=== PATIENT | male | born 1930 | race Caucasian/White ===

== ENCOUNTER 2017-03-21 01:43 | Inpatient (IN) ==
[2017-03-21] MEDS ORDERED: HALOPERIDOL 5 MG/ML AMP IV STA (02:10)
[2017-03-21] MEDS ORDERED: HALOPERIDOL 5 MG/ML AMP ONE (02:13)
[2017-03-21] MEDS ORDERED: ONDANSETRON 4 MG/2 ML VIAL IV STA (02:18)
[2017-03-21] MEDS ORDERED: MORPHINE 2 MG/1 ML SYRINGE IV STA (02:18)
[2017-03-21] MEDS ORDERED: ONDANSETRON 4 MG/2 ML VIAL ONE ×2 (02:22→11:45)
[2017-03-21] MEDS ORDERED: MORPHINE 2 MG/1 ML SYRINGE ONE (02:22)
--- NOTE | 2017-03-21 02:48 | Emergency Department Note ---
ILadonna Emily, am scribing for, and in the presence of, Ha James MD 02: 44. Jacob Justice Charles R, MD, personally performed the services described in this documentation, ascribed by Miracle Dougherty in my presence, and it is both accurate and complete . Arrival - Arrival Chief Complaint: Fall ED Nursing Triage Note: Pt arrives via ems from home with complaints of right hip pain after falling while getting something to eat in kitchen. Denies hitting head, neck pain, or back pain. -LOC. Pt noted to have outward rotation to right foot and shortening. + pulse noted. + motor/sensory function noted. Pt has history of dementia is hard of hearing. Mode of Arrival: Stretcher Limitations: No Limitations Source: Significant other (spouse) Time Seen by Provider: 03/21/17 01:59 - History of Present Illness HPI Narrative: Pt is a 86 y/o male who was brought to ED from home by EMS for further evaluation of right hip and leg pain s/p of fall this morning the kitchen. Spouse notes pt having dementia. Spouse notes he can't walk and will deny pain due to wanting to go back home, but denies LOC. Pt called for spouse when fell. Pt's team of providers are Dr. Best, Abdirahman, and Jose. PMHx of CABG in 98; HTN, pacemaker. Onset (ago): hour(s) Consistency: constant Severity: moderate Severity scale (1-10): 6 Allergies/Adverse Reactions: Allergies Allergy/AdvReac Type Severity Reaction Status Date / Time No Known Allergies Allergy Verified 03/21/17 01:52 Home Medications: Home Medications Medication Instructions Recorded Confirmed Type Aspirin 81 mg PO DAILY 03/21/17 03/21/17 History Donepezil HCl [Aricept] 23 mg PO BEDTIME 03/21/17 03/21/17 History Memantine HCl [Namenda] 10 mg PO BID 03/21/17 03/21/17 History Metoprolol Succinate Xl [Toprol Xl] 100 mg PO DAILY 03/21/17 03/21/17 History Pravastatin [Pravachol] 80 mg PO DAILY 03/21/17 03/21/17 History Tamsulosin HCl 0.4 mg PO DAILY 03/21/17 03/21/17 History levoFLOXacin [Levofloxacin] 500 mg PO DAILY 03/21/17 03/21/17 History Review of System - Review of System 12 point system: reviewed and no additional remarkable complaints except as stated - Review of System Constitutional: Absent: chills, fever Respiratory: Absent: respiratory distress Cardiovascular: Absent: chest pain, syncope Gastrointestinal: Absent: abdominal pain Musculoskeletal: Present: leg pain (right leg and hip pain) Skin: Absent: rash Medical,Surgical,& Family Hx - Medical History Cardio: History of: Cardiac Dysrhythmia, Hypertension, Pacemaker Neurology: History of: Dementia Genitourinary: History of: Prostate Problems - Social History Smoking Status: Never smoker Frequency of Alcohol Use: None Type of Drug Use: None Exam Vital Signs: Vital Signs Temperature 98.3 F 03/21/17 01:43 Pulse Rate 60 03/21/17 01:43 Respiratory Rate 20 03/21/17 01:43 Blood Pressure 143/73 03/21/17 01:43 O2 Sat by Pulse Oximetry 96 03/21/17 01:43 - General General appearance: alert, in no apparent distress - Head Head exam: Present: atraumatic, normocephalic - Eye Eye exam: Present: PERRL, EOMI - ENT ENT exam: Present: mucous membranes moist. Absent: mucous membranes dry - Neck Neck exam: Present: full ROM - Chest Chest inspection: Present: symmetric chest wall rise - Respiratory Respiratory exam: Present: normal lung sounds bilaterally. Absent: respiratory distress - Cardiovascular Cardiovascular exam: Present: murmur (4 out of 6) - Extremities Exam Extremities exam: Present: tenderness (RLE is externally rotated and shortened) , pedal edema (+2 in bilateral lower extremities) - Neurological Exam Neurological exam: Present: alert, oriented X3, CN II-XII intact - Skin Skin exam: Present: warm, dry Course - Consultations Consultation #1: will accept the patient Time: 03:57 Consultation #2: Hospitalist will admit patient Time: 04:01 Results - Labs CBC & BMP: 03/21/17 02:38 03/21/17 02:38 Lab Results: I have reviewed the patients labs Labs: Laboratory Tests 03/21/17 03/21/17 02:38 02:38 WBC 10.7 RBC 3.53 L Hgb 10.8 L Hct 31.7 L Plt Count 167 Neut % (Auto) 76.0 H Lymph % (Auto) 12.3 L Neut # (Auto) 8.1 H Lymph # (Auto) 1.3 L Dickens # (Auto) 1.0 H Sodium 139 Potassium 4.1 Chloride 106 Carbon Dioxide 27 BUN 33 H Creatinine 2.40 H BUN/Creatinine Ratio 13.00 Glucose 107 H Albumin 3.1 L Albumin/Globulin Ratio 0.9 L Laboratory Tests 03/21/17 02:38 Blood Type B POSITIVE Antibody Screen Negative - EKG EKG results: interpreted by ERMD (electronic atrial pacemaker; RBBB; marked right axis deviation), sinus rhythm (75) Disposition Clinical Impression: Mechanical fall, Closed right hip fracture, Dementia, Renal insufficiency Case discussed with: patient, patient's family Disposition: Still a Patient Condition: Stable Time of Disposition: 03:58
[2017-03-21 02:49] LABS: Basophils % 0.3 % (0.0-0.8); Eosinophils # 0.2 10*3/uL (0.0-0.87); Eosinophils % 1.6 % (0.00-10.9); Hematocrit 31.7 VOL% (42.0-52.0); Hemoglobin 10.8 GM/DL (14.0-18.0); Immature Granulocytes % 0.6 %; Immature Granulocytes Absolute 0.06 #; Lymphocytes # 1.3 10*3/uL (1.4-4.0); Lymphocytes % 12.3 % (21.2-54.2); Mean Corpuscular HGB Conc 34.1 GM/DL (32-36); Mean Corpuscular Hemoglobin 31 PG (27-34); Mean Corpuscular Volume 89.8 FL (87-102); Mean Platelet Volume 10.5 FL (9.6-12.0); Monocytes % 9.2 % (1.7-12.7); Neutrophils # 8.1 10*3/uL (1.4-7.4); Platelet Count 167 T/CUMM (130-400); Red Blood Count 3.53 MC/CUMM (3.8-5.5); White Blood Count 10.7 T/CUMM (4-12)
[2017-03-21 03:00] LABS: INR 1.2; PT Patient Result 12.3 SECS
[2017-03-21 03:10] LABS: Albumin 3.1 G/DL (3.4-5.0); Bilirubin,Total 0.5 MG/DL (0.2-1.0); Calcium 8.5 MG/DL (8.5-10.1); Osmolality,Calculated 283.5 MOS/KG (273-304); Potassium 4.1 MMOL/L (3.5-5.1); Total Protein 6.4 G/DL (6.4-8.3)
[2017-03-21] MEDS ORDERED: SODIUM CHLORIDE 0.9% 500 ML IV STA (03:14)
--- NOTE | 2017-03-21 03:22 | EKG Report ---
Stationary ECG Study [facility] ER Test Date: 03/21/2017 3:22:07 AM Pat Name: YANG COPPOLA Department: Room: Gender: M Poker Machine Attendant: : [id number] Requested by: Ha Velez Order Number: [id number] Reading MD: JACLYN MONTELONGO Intervals Keo Rate: 75 P: 140 [place]: 191 QRS: 104 QRSD: 149 T: 22 QT: 440 QTc: 469 Interpretive Statements ELECTRONIC ATRIAL PACEMAKER RIGHT AXIS DEVIATION RIGHT BUNDLE BRANCH BLOCK Electronically Signed On 03-21-17 08:03:49 CDT by JACLYN MONTELONGO [email or web address]
[2017-03-21] MEDS ORDERED: ONDANSETRON 4 MG/2 ML VIAL IV PRN (05:08)
[2017-03-21] MEDS ORDERED: ACETAMINOPHEN 325 MG TABLET PO PRN (05:08)
[2017-03-21] MEDS ORDERED: MORPHINE 2 MG/1 ML SYRINGE IV PRN (05:08)
[2017-03-21 05:28] LABS: Apearance,Urine Slightly Hazy (Clear); Bilirubin,Urine Negative (Negative); Blood, Urine Large mg/dL (Negative); Glucose,Urine (UA) Negative (Negative); Hyaline Casts,Urine 1 /LPF (0-3); Ketones,Urine 5 mg/dL (Negative); Mucus,Urine Occasional /LPF (Occasional); Nitrite,Urine Negative (Negative); Protein,Urine 100 MG/DL; RBC,Urine 40 /HPF (0-4); Squamous Epithelial Cell,Urine Occasional /HPF (0-10); Urine Color Yellow (Yellow); Urine Specific Gravity 1.025 (1.001-1.035); Urine Urobilinogen < 2.0 EU/DL (0.2-1.0); WBC,Urine 3 /HPF (0-6)
[2017-03-21] MEDS: SODIUM CHLORIDE 0.9% 1,000 ML IV SCH ×3 (05:30→21:29)
--- NOTE | 2017-03-21 05:40 | Hospitalist History & Physical ---
Assessment and Plan - Time spent with patient Time spent with patient: Greater than 30 minutes (1) Closed right hip fracture Status: Acute Assessment and plan: Admit to hospitalist services. Orthopedic consult. Consult [facility] for surgical clearance. Pain control. Bed rest and fall precautions. Current Visit: Yes (2) Chronic kidney disease Status: Acute Assessment and plan: Creatinine in ED was 2.4. Only one previous value of 1.4 in 2015. Likely CKD with some acute component. Has a Hx of Prostate CA and is currently being treated for UTI. Hematuria noted in catheter bag, however states that he has not had any hematuria prior to catheter placement. Continue home dose of Levaquin; patient to use his on Rx. Hydrate with NS at 100 ml/hr. Repeat CMP in am. Current Visit: Yes (3) Hypertension Status: Chronic Assessment and plan: Continue home medications. Monitor. Current Visit: Yes (4) Dementia Status: Chronic Assessment and plan: Continue home medications. Current Visit: Yes (5) DVT prophylaxis Status: Acute Assessment and plan: Surgical patient. Use SCDs for now. Current Visit: Yes History of Present Illness Chief complaint: Right hip fracture; Fall History of present illness: Mr. Wood is a 86 year old male with a past medical history significant for HTN, CABG, Cardiac dysrhythmia with pacemaker placement, Dementia, and Prostate CA who was brought to the ED today by EMS after falling in his kitchen. His reports that he was in the kitchen getting something to eat when he fell. XR of right hip showed "acute mildly displaced comminuted right hip intertrochanteric fracture." His creatinine was 2.4 today. Hospitalist services were consulted and the patient will be admitted for further evaluation and treatment. Home medications were reviewed and reconciled. This patient is a full code. Home Medications Medication Instructions Recorded Confirmed Type Aspirin 81 mg PO DAILY 03/21/17 03/21/17 History Donepezil HCl [Aricept] 23 mg PO BEDTIME 03/21/17 03/21/17 History Memantine HCl [Namenda] 10 mg PO BID 03/21/17 03/21/17 History Metoprolol Succinate Xl [Toprol Xl] 100 mg PO DAILY 03/21/17 03/21/17 History Pravastatin [Pravachol] 80 mg PO DAILY 03/21/17 03/21/17 History Tamsulosin HCl 0.4 mg PO DAILY 03/21/17 03/21/17 History levoFLOXacin [Levofloxacin] 500 mg PO DAILY 03/21/17 03/21/17 History Allergies Allergy/AdvReac Type Severity Reaction Status Date / Time No Known Allergies Allergy Verified 03/21/17 01:52 Medical,Surgical,& Family Hx - Medical History Cardio: History of: Cardiac Dysrhythmia, Hypertension, Pacemaker Neurology: History of: Dementia HEENT: History of: Ear Problem (Hard of hearing) Genitourinary: History of: Prostate Problems (Prostate CA) - Surgical History Cardiac Surgeries: Sugical HX of: Cardiac Surgery (CABG x 3 grafts; pacemaker placement) HEENT Surgeries: Surgical HX of: Eye Surgery (cataract) Abdominal Surgeries: Surgical HX of: Appendectomy Reproductive Surgeries: Surgical HX of;: Prostate Surgery (cryo) - Family History Family History: Reports;: Family Heart Disease, Family Stroke - Social History Smoking Status: Former smoker Have you smoked in the last 12 months: No (Quit over 50 years ago) Frequency of Alcohol Use: None Type of Drug Use: None Marital Status: Lives With:: Spouse Functional capacity: independent ambulation 12 point system: reviewed and no additional remarkable complaints except as stated - Constitutional Constitutional: Present: frequent falls (Two falls on Tuesday; one fall today. ) . Absent: chills, fever(s), lethargy, malaise, weakness - EENT Eyes: Absent: blurry vision, diplopia, loss of vision Ears: Present: decreased hearing Nose, mouth and throat: Absent: headache(s), nasal congestion, sore throat - Cardiovascular Cardiovascular: Present: edema. Absent: chest pain at rest, diaphoresis, dyspnea, orthopnea, palpitations - Respiratory Respiratory: Absent: cough, dyspnea, wheezing - Gastrointestinal Gastrointestinal: Absent: abdominal pain, diarrhea, nausea, vomiting - Genitourinary Genitourinary: Absent: dysuria, flank pain, urinary frequency - Musculoskeletal Musculoskeletal: Absent: arthralgias, back pain, joint swelling, muscle weakness , myalgias - Neurological Neurological: Present: confusion. Absent: dizziness, numbness, paresthesias, syncope - Psychiatric Psychiatric: Absent: anxiety, depression - Endocrine Endocrine: Absent: cold intolerance, polydipsia, polyphagia - Hematologic/Lymphatic Hematologic/Lymphatic: Absent: easy bleeding, easy bruising Exam - Constitutional Vitals: Period Temp Pulse Resp BP Sys/Suarez Pulse Ox Last 24 Hr 98.3 F-98.3 F 60-68 19-20 143-143/73-73 96-98 Exam: Constitutional System: Afebrile. Awake, alert. Confused. No distress. No tremulousness. Head: Normocephalic, atraumatic. Ears, Nose and Throat System: Hard of hearing. No pain or tenderness. No epistaxis or discharge Eyes System: Pupils equal, round, and reactive. Extraocular muscles intact. Neck: Supple, without adenopathy, No jugular venous distention. No thyromegaly, neck mass, or prior surgery apparent. Respiratory System: Chest clear to auscultation. Cardiovascular System: Heart with regular rate and rhythm. Systolic murmur present. GI System: Abdomen soft, nontender. Normo active bowel sounds present. : Hematuria noted in catheter bag. Musculoskeletal System: BLE edema noted; right worse than left. Lateral deviation of right leg. Full distal pulses. Normal capillary refill. Neurological System: Hard of hearing. No aphasia Psychiatric System: Confused. Results - Labs CBC & BMP: 03/21/17 02:38 03/21/17 02:38 Lab Results: I have reviewed the past 24 hour labs - Diagnostic Findings Procedure: CT: report reviewed by me (Right hip) Quality Measures - VTE Contraindication to Pharmacological VTE Prophylaxis: High Risk of Bleeding
--- NOTE | 2017-03-21 07:10 | CT Report ---
CT hip RT wo con Indication: Fall, right hip pain Comparison: None Technique: Multiple axial tomographic images of the right hip were obtained without the use of intravenous contrast. Coronal and sagittal reformatted images provided. Findings: Acute, mildly displaced, comminuted right hip intertrochanteric fracture. No hip with dislocation demonstrated. There is moderate degenerative change of the right hip joint with subchondral cystic change within the acetabulum greater than the humeral head. Atherosclerotic calcifications demonstrated. IMPRESSION: As above. Preliminary report was issued by [facility]. The CT exam was performed using one or more of the following dose reduction techniques: Automated exposure control, adjustment of the mA and/or kV according to patient size, or use of iterative reconstruction technique. PROCEDURE INTERPRETED AT [facility] DEPARTMENT OF RADIOLOGY Final Report Signed by: Dr Bakari Walker
--- NOTE | 2017-03-21 07:36 | XRay Report ---
Exam: XR chest 1V portable Date: 03/21/2017 2:19 AM Indication: Shortness of breath Comparison: 07/22/2014 Technical: AP Findings: Cardiomegaly with a right-sided cardiac pacing device with atrial ventricular leads and previous sternotomy wires. ASVD is present. External cardiac leads are present. Some haziness in the left base present. Faint area of nodularity in the left base is no longer demonstrated Impression: 1. Cardiomegaly and previous sternotomy stepsister cardiac pacing device 2. Residual pleural thickening in the left base and slight haziness however no obvious nodularity present.. PROCEDURE INTERPRETED AT [facility] DEPARTMENT OF RADIOLOGY Final Report Signed by: Dr. Kong Oneal
--- NOTE | 2017-03-21 07:39 | XRay Report ---
Exam: XR hip 2v w pelvis RT Date: 03/21/2017 2:18 AM Indication: Pain right hip AP pelvis and AP frog-leg views the right hip Comparison: None Findings: Examination reveals an intertrochanteric fracture of the right femoral neck suspected. The femoral head is seated within acetabular region. The left femoral head and neck regions are intact. The pubic rami are unremarkable. Vascular calcifications of the aorta iliac vessels. SI joints intact. Phleboliths are present. Nonspecific GI pattern is noted Impression: 1. Intratrochanteric fracture right femoral neck nondisplaced PROCEDURE INTERPRETED AT [facility] DEPARTMENT OF RADIOLOGY Final Report Signed by: Dr. Kong Oneal
--- NOTE | 2017-03-21 07:40 | XRay Report ---
Exam: XR femur RT Date: 03/21/2017 2:19 AM Indication: Leg pain status post fall Comparison: None Technical: AP lateral views 4 images Findings: The exam reveals intertrochanteric fracture of the right femoral neck demonstrated with the pelvis and right hip images. The shaft and distal femur are intact. Vascular calcification superficial femoral popliteal artery. The proximal tibia and fibular intact patella is unremarkable. Impression: 1. Vascular calcinosis 2. Intratrochanteric fracture right femoral neck best delineated on the AP pelvis and AP frog-leg views the right hip PROCEDURE INTERPRETED AT [facility] DEPARTMENT OF RADIOLOGY Final Report Signed by: Dr. Kong Oneal
--- NOTE | 2017-03-21 08:53 | Orthopedic Consult Note ---
History of Present Illness Chief complaint: Right hip fracture History of present illness: Mr. Wood is a 86 year old male fell yesterday evening injuring his right hip family reports that he is an ambulator is recently started using a walker but is experiencing increasing difficulty secondary to dementia. Upon falling last night he was unable to bear weight about the right lower extremity brought to [facility] emergency room radiographs confirm an intertrochanteric fracture to the right hip I been asked to evaluate. Examination reveals external rotation shortening of the right limb he will actively flex and extend the foot and ankle on the right he has no pain about the left lower extremity or either upper extremity Radiographs confirm intertrochanteric fracture of the right hip Impression: Intertrochanteric fracture right hip Plan: Discussed with the patient and family present to diagnose treatment recommendation including the need for operative stabilization of his right hip fracture this should be a stable injury which should be able to advance with his weightbearing quickly. All questions were answered able to understand and agreed to proceed Home Medications Medication Instructions Recorded Confirmed Type Aspirin 81 mg PO DAILY 03/21/17 03/21/17 History Donepezil HCl [Aricept] 23 mg PO BEDTIME 03/21/17 03/21/17 History Memantine HCl [Namenda] 10 mg PO BID 03/21/17 03/21/17 History Metoprolol Succinate Xl [Toprol Xl] 100 mg PO DAILY 03/21/17 03/21/17 History Pravastatin [Pravachol] 80 mg PO DAILY 03/21/17 03/21/17 History Tamsulosin HCl 0.4 mg PO DAILY 03/21/17 03/21/17 History levoFLOXacin [Levofloxacin] 500 mg PO DAILY 03/21/17 03/21/17 History Allergies Allergy/AdvReac Type Severity Reaction Status Date / Time No Known Allergies Allergy Verified 03/21/17 01:52 Medical,Surgical,& Family Hx - Medical History Cardio: History of: Cardiac Dysrhythmia, Hypertension, Pacemaker Neurology: History of: Dementia HEENT: History of: Ear Problem (Hard of hearing) Genitourinary: History of: Prostate Problems (Prostate CA) - Surgical History Cardiac Surgeries: Sugical HX of: Cardiac Surgery (CABG x 3 grafts; pacemaker placement) HEENT Surgeries: Surgical HX of: Eye Surgery (cataract) Abdominal Surgeries: Surgical HX of: Appendectomy Reproductive Surgeries: Surgical HX of;: Prostate Surgery (cryo) - Family History Family History: Reports;: Family Heart Disease, Family Stroke - Social History Smoking Status: Former smoker Frequency of Alcohol Use: None Type of Drug Use: None Exam - Constitutional Vitals: Period Temp Pulse Resp BP Sys/Suarez Pulse Ox Last 24 Hr 98.3 F-98.3 F 60-93 18-20 143-185/53-85 94-99 Results - Labs CBC & BMP: 03/21/17 02:38 03/21/17 02:38
[2017-03-21] MEDS: MEMANTINE 5 MG TABLET PO SCH ×2 (09:00→21:24)
[2017-03-21] MEDS: TAMSULOSIN 0.4 MG CAPSULE PO SCH (09:00)
[2017-03-21] MEDS ORDERED: LEVOFLOXACIN 500 MG PO SCH (09:00)
--- NOTE | 2017-03-21 09:23 | Cardiology Consult Note ---
Assessment and Plan - Time spent with patient Time spent with patient: Greater than 30 minutes (1) Preoperative cardiovascular examination Status: Acute Assessment and plan: Patient remains at moderate risk for perioperative complications with upcoming surgery. Given the severity of the right hip fracture, these risks are not prohibitive. Recommend aspirin as soon as possible after procedure. Recommend beta-blockade during the procedure as well. Will further discuss with Dr. Montelongo and await additional recommendations. Current Visit: Yes (2) Dyslipidemia Status: Chronic Assessment and plan: Patient's home medication includes pravastatin. Will restart pravastatin 80 mg orally each evening starting this evening. Fasting lipid profile tomorrow morning. Current Visit: Yes (3) Risk for falls Status: Chronic Assessment and plan: Fall prevention protocol in place Current Visit: Yes (4) CAD (coronary artery disease) Status: Chronic Assessment and plan: Known CAD. No complaints of angina per patient's . He is status post CABG 3. I have no records of recent invasive workup or CABG, no echocardiogram recently. Should the patient require echo can do so while he is hospitalized versus outpatient. Will discuss with Dr. Montelongo and will order as needed . Current Visit: Yes (5) Closed right hip fracture Status: Acute Assessment and plan: Patient is n.p.o. and scheduled for right hip surgery around noon today. Current Visit: Yes (6) Dementia Status: Chronic Assessment and plan: Patient's has taken care of Mr. Wood at home for approximately 6 years. She has done a beautiful job. She did acknowledge that she feels as if this may be coming to an end. I will make sure that case management is involved as they may have options to offer at discharge such as swing bed versus long-term placement. Current Visit: Yes (7) Chronic kidney disease Status: Chronic Assessment and plan: Patient does have chronic kidney disease. According to records, it appears to be more severe during this admission then it has been noted to be in the past. Avoiding JAMIE inhibitors for fear of worsening renal insufficiency. Current Visit: Yes Qualifiers: Chronic kidney disease stage: stage 3 (moderate) Qualified Code(s): N18.3 - Chronic kidney disease, stage 3 (moderate) (8) Hypertension Status: Chronic Assessment and plan: Will adjust medications accordingly during hospital stay. At this point, systolic blood pressures averaging 160s-180s however, patient is anxious per patient's . Also, he may be in some pain from the right hip. Will continue to follow this closely and adjust his meds as we need to. 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 Mr. Wood, 86WM, with risk factors significant for: Advanced age, known CAD ( S/P CABG x 3), hypertension, dyslipidemia, sedentary lifestyle. S/P PPM, advanced dementia. Admitted March 21, 2017 after recent fall causing right hip fracture. Patient is scheduled for operative stabilization of the right hip fracture this afternoon by Dr. De La Garza. Cardiology has been consulted for preoperative risk evaluation. Ms. Wood reports patient does not complain of chest pain, heaviness, tightness or shortness of breath. No complaints of palpitations or heart racing. Patient has been falling a lot lately (fell 3 times over the weekend) due to generalized weakness. He was recently diagnosed with a urinary tract infection and is being treated for such. EKG reveals paced rhythm, right bundle branch block. Blood pressure is elevated but he has not received his metoprolol this morning. Will further follow his vital signs during hospital stay. Hopefully, elevation is related to not receiving meds yet as well as his right hip pain. Postoperatively, patient may benefit from echocardiogram. I will further discuss with Dr. Montelongo and await additional recommendations. IMPRESSION/PLAN: 1. PREOPERATIVE RISK EVALUATION - await Dr. Montelongo's recommendations. A recent echo or stress test available. 2. KNOWN CAD S/P CABG X 3 - recommend aspirin daily when okay with orthopedics. 3. HYPERTENSION - continue with beta-sheryl. Adjust medications accordingly during hospital stay 4. DYSLIPIDEMIA - statin drug will be reincorporated into his medication regimen. According to records, he usually takes Pravastatin 80 mg orally each evening. 5. ADVANCED DEMENTIA - High falls risk. Continue his home medications for dementia. 6. UTI - Treated with Levofloxin. CC: Awilda Dickens MD - Home Medications and Allergies Home Medications: Home Medications Medication Instructions Recorded Confirmed Type Aspirin 81 mg PO DAILY 03/21/17 03/21/17 History Donepezil HCl [Aricept] 23 mg PO BEDTIME 03/21/17 03/21/17 History Memantine HCl [Namenda] 10 mg PO BID 03/21/17 03/21/17 History Metoprolol Succinate Xl [Toprol Xl] 100 mg PO DAILY 03/21/17 03/21/17 History Pravastatin [Pravachol] 80 mg PO DAILY 03/21/17 03/21/17 History Tamsulosin HCl 0.4 mg PO DAILY 03/21/17 03/21/17 History levoFLOXacin [Levofloxacin] 500 mg PO DAILY 03/21/17 03/21/17 History Allergies/Adverse Reactions: Allergies Allergy/AdvReac Type Severity Reaction Status Date / Time No Known Allergies Allergy Verified 03/21/17 01:52 ROS unobtainable: due to dementia Medical,Surgical,& Family Hx - Medical History Cardio: History of: Cardiac Dysrhythmia, CAD, Hypertension, Pacemaker No history of: [place] Neurology: History of: Dementia HEENT: History of: Ear Problem (Hard of hearing) Genitourinary: History of: Prostate Problems (Prostate CA) - Surgical History Cardiac Surgeries: Sugical HX of: Cardiac Surgery (CABG x 3 grafts; pacemaker placement) HEENT Surgeries: Surgical HX of: Eye Surgery (cataract) Abdominal Surgeries: Surgical HX of: Appendectomy Reproductive Surgeries: Surgical HX of;: Prostate Surgery (cryo) - Family History Family History: Reports;: Family Heart Disease, Family Stroke - Social History Smoking Status: Former smoker Have you smoked in the last 12 months: No Frequency of Alcohol Use: None Type of Drug Use: None Marital Status: (61 years) Lives With:: Spouse Physical Examination Vital Signs Temp Pulse Resp BP Pulse Ox 98.3 F 68 19 143/73 98 03/21/17 01:43 03/21/17 01:43 03/21/17 01:43 03/21/17 01:43 03/21/17 01:43 Exam: General: [Elderly, frail gentleman. Pleasant. Does not speak. Appears comfortable] HEENT: [PERRL, normocephalic, atraumatic. Mucous membranes moist. No jaundice noted. Conjunctiva moist and clear, sclerae anicteric] Neck: No obvious JVD/HJR, no thyromegaly or lymphadenopathy noted. Soft bilateral carotid bruits appreciated Cardiac: [Regular rate and rhythm.] [II/ KM heard best at bilateral upper sternal borders. Lungs: [Clear to auscultation without accessory muscle use to assist the respiratory pattern.] Not requiring oxygen Abdomen: Soft, bowel sounds normoactive. Nontender and nondistended. No abdominal bruit or thrill noted. No masses noted. Musculoskeletal: No fluid collection. Decreased range of motion is noted. Extremities: No clubbing, cyanosis noted. [ No edema noted.] Upper extremity pulses 2+. Lower extremity pulses 2+. Capillary refill less than 3 seconds. Skin: No unusual lesions or rashes. No skin breakdown appreciated. Neuro: Awake, alert. Moves all extremities well without hemiparesis or paralysis. Tremor noted. Result/EKG - Labs CBC & BMP: 03/21/17 02:38 03/21/17 02:38 Lab Results: I have reviewed the past 24 hour labs Labs: Laboratory Results - last 24 hr 03/21/17 03/21/17 03/21/17 02:38 02:38 02:38 WBC 10.7 RBC 3.53 L Hgb 10.8 L Hct 31.7 L MCV 89.8 MCH 31 MCHC 34.1 RDW 13.0 Plt Count 167 MPV 10.5 Neut % (Auto) 76.0 H Lymph % (Auto) 12.3 L [place] % (Auto) 9.2 Eos % (Auto) 1.6 Baso % (Auto) 0.3 Neut # (Auto) 8.1 H Lymph # (Auto) 1.3 L [place] # (Auto) 1.0 H Eos # (Auto) 0.2 Baso # (Auto) 0.0 Immature Gran % 0.6 Nucleated RBC % 0.0 Immature Gran # 0.06 Nucleated RBCs # 0.00 Immature Plt Fraction 0.0 INR 1.2 PT Patient/Control Mix 12.3 Sodium 139 Potassium 4.1 Chloride 106 Carbon Dioxide 27 Anion Gap 10.1 BUN 33 H Creatinine 2.40 H GFR Calculation 30 BUN/Creatinine Ratio 13.00 Glucose 107 H Calculated Osmolality 283.5 Calcium 8.5 Total Bilirubin 0.50 AST 20 ALT 20 Alkaline Phosphatase 49 Total Protein 6.4 Albumin 3.1 L Globulin 3.3 Albumin/Globulin Ratio 0.9 L Urine Color Urine Appearance Urine pH Ur Specific [place] Urine Protein Urine Glucose (UA) Urine Ketones Urine Blood Urine Nitrate Urine Bilirubin Urine Urobilinogen Urine Leukocytes Urine RBC Urine WBC Ur Squamous Epith Cells Hyaline Casts Urine Mucus Ur Culture Indicated? Blood Type Antibody Screen 03/21/17 03/21/17 02:38 03:46 WBC RBC Hgb Hct MCV MCH MCHC RDW Plt Count MPV Neut % (Auto) Lymph % (Auto) [place] % (Auto) Eos % (Auto) Baso % (Auto) Neut # (Auto) Lymph # (Auto) [place] # (Auto) Eos # (Auto) Baso # (Auto) Immature Gran % Nucleated RBC % Immature Gran # Nucleated RBCs # Immature Plt Fraction INR PT Patient/Control Mix Sodium Potassium Chloride Carbon Dioxide Anion Gap BUN Creatinine GFR Calculation BUN/Creatinine Ratio Glucose Calculated Osmolality Calcium Total Bilirubin AST ALT Alkaline Phosphatase Total Protein Albumin Globulin Albumin/Globulin Ratio Urine Color Yellow Urine Appearance Slightly hazy Urine pH 5.0 Ur Specific [place] 1.025 Urine Protein 100 Urine Glucose (UA) Negative Urine Ketones 5 Urine Blood Large Urine Nitrate Negative Urine Bilirubin Negative Urine Urobilinogen < 2.0 H Urine Leukocytes Negative Urine RBC 40 Urine WBC 3 Ur Squamous Epith Cells Occasional Hyaline Casts 1 Urine Mucus Occasional Ur Culture Indicated? Not indicated Blood Type B POSITIVE Antibody Screen Negative - Diagnostic Findings Procedure: Chest x-ray: report reviewed by me, CT: report reviewed by me - EKG EKG results: interpreted by me EKG shows: sinus rhythm Quality Measures - VTE Contraindication to Pharmacological VTE Prophylaxis: High Risk of Bleeding
[2017-03-21] MEDS ORDERED: FAMOTIDINE 20 MG/2 ML VIAL IV ONE (09:47)
[2017-03-21] MEDS: METOPROLOL SUCCINATE XL 100 MG TABLET PO SCH (10:14)
[2017-03-21] MEDS ORDERED: ceFAZolin 2,000 MG in PREMIX 1 EACH IV ONE (11:00)
[2017-03-21] MEDS ORDERED: LIDOCAINE 1% 5 ML VIAL ONE (11:45)
[2017-03-21] MEDS ORDERED: GLYCOPYRROLATE 0.4 MG/2 ML VIAL ONE (11:45)
[2017-03-21] MEDS ORDERED: PROPOFOL 200 MG/20 ML VIAL IV ONE (11:45)
[2017-03-21] MEDS ORDERED: PHENYLEPHRINE 1 MG/10 ML SYRINGE IV ONE (11:45)
[2017-03-21] MEDS ORDERED: ETOMIDATE 20 MG/10 ML VIAL IV ONE (11:45)
[2017-03-21] MEDS ORDERED: NEOSTIGMINE 10 MG/10 ML VIAL ONE (11:45)
[2017-03-21] MEDS ORDERED: ROCURONIUM 100 MG/10 ML VIAL IV ONE (11:45)
[2017-03-21] MEDS ORDERED: MAGNESIUM HYDROXIDE SUSP 30 ML UDCUP PO PRN (13:15)
[2017-03-21] MEDS ORDERED: BISACODYL 10 MG SUPP RECTAL PRN (13:15)
[2017-03-21] MEDS ORDERED: LACTULOSE 20 GM/30 ML UDCUP PO PRN (13:15)
[2017-03-21] MEDS ORDERED: PROMETHAZINE 25 MG/1 ML VIAL IM PRN (13:15)
--- NOTE | 2017-03-21 13:49 | XRay Report ---
XR hip 2V RT Indication: ORIF right hip Comparison: Right hip x-ray March 21, 2017 Technique: 4 intraoperative fluoroscopic views of the right hip. Fluoroscopy time 44 seconds. Findings: Images submitted during ORIF of right hip. Proximal diaphyseal femoral plate and screws with connected proximal femoral neck dynamic screw across previously demonstrated intertrochanteric fracture which appears in improved anatomic alignment. Please see operative report for details. IMPRESSION: As above. PROCEDURE INTERPRETED AT [facility] DEPARTMENT OF RADIOLOGY Final Report Signed by: Dr Bakari Walker
--- NOTE | 2017-03-21 14:09 | Anesthesia Post-Op ---
Anesthesia Post OP - Post Ansesthetic Evaluation Patient seen in post op: Yes Resp: within normal limits CV: within normal limits Mental: within normal limits Temp: within normal limits [id number]: within normal limits Nausea and Vomiting: within normal limits Pain: within normal limits
[2017-03-21] MEDS ORDERED: SEVOFLURANE 1 UNIT/15 MINUTE INH ONE (14:12)
[2017-03-21] MEDS ORDERED: fentaNYL 100 MCG/2 ML VIAL ONE (14:13)
[2017-03-21] MEDS ORDERED: LACTATED RINGERS 1,000 ML IV ONE (14:13)
[2017-03-21] MEDS: PRAVASTATIN 40 MG TABLET PO SCH (21:25)
--- NOTE | 2017-03-22 01:14 | Operative Note ---
DATE: 03/21/2017 PREOPERATIVE DIAGNOSIS: INTERTROCHANTERIC FRACTURE, RIGHT HIP. POSTOPERATIVE DIAGNOSIS: INTERTROCHANTERIC FRACTURE, RIGHT HIP. OPERATIVE PROCEDURE: COMPRESSION HIP SCREW, RIGHT. SURGEON: Dmitry De La Garza Jr., MD ANESTHESIA: General. INDICATIONS: An 86-year-old white male who fell at home last night sustaining a displaced intertroch anteric fracture to his right hip. He has been admitted to the medical service. I have been asked t o evaluate regarding his orthopedic injuries. I have discussed with he and his family present at the diagnosis treatment recommendation including the need for operative stabilization. OPERATIVE PROCEDURE: The patient was taken to operating room and under general anesthetic, positione d on the fracture table. The left leg placed in a well-padded leg pineda, and the right placed in tr action boot. Gentle traction and internal rotation was applied and fluoroscopy was brought in to con firm alignment and reduction. The hip was then prepped and draped in the usual sterile manner. He r eceived Ancef preoperatively. A longitudinal incision was then made over the lateral aspect of the r ight hip. Sharp dissection was carried down through skin and subcutaneous tissue. The IT band was s plit and the vastus also split. Guide pin placed in the center of the femoral head both AP and later al projections more posterior on the lateral. A 130-degree 4-hole side plate with 110 mm lag screw w as used to secure the reduction. This was all placed in a standard technique. Hemostasis was verifi ed. Fluoroscopy pictures were preserved for his record. The wound was then irrigated and closed in layers using 0-Vicryl for the vastus as well as IT band layers, 2-0 Vicryl for the subcutaneous layer s, and ambrocio for skin. Sterile dressings applied. He was taken to the Recovery Room in a stable c ondition. ESTIMATED BLOOD LOSS: 100 cc. COMPLICATIONS: None. COUNTS: Correct.
[2017-03-22] MEDS: SODIUM CHLORIDE 0.9% 1,000 ML IV SCH ×3 (03:12→23:47)
[2017-03-22] MEDS: MORPHINE 2 MG/1 ML SYRINGE IV PRN (03:42)
[2017-03-22] MEDS ORDERED: ZIPRASIDONE 20 MG/1 ML VIAL IM PRN (04:04)
[2017-03-22] MEDS: FONDAPARINUX 2.5 MG/0.5 ML SYRINGE SUBCUT SCH (06:16)
[2017-03-22 07:18] LABS: Basophils % 0.3 % (0.0-0.8); Eosinophils # 0.1 10*3/uL (0.0-0.87); Eosinophils % 0.5 % (0.00-10.9); Hematocrit 28.2 VOL% (42.0-52.0); Hemoglobin 9.5 GM/DL (14.0-18.0); Immature Granulocytes % 0.3 %; Immature Granulocytes Absolute 0.03 #; Lymphocytes # 0.7 10*3/uL (1.4-4.0); Lymphocytes % 7.1 % (21.2-54.2); Mean Corpuscular HGB Conc 33.7 GM/DL (32-36); Mean Corpuscular Hemoglobin 30 PG (27-34); Mean Corpuscular Volume 90.4 FL (87-102); Mean Platelet Volume 10.5 FL (9.6-12.0); Monocytes % 10.9 % (1.7-12.7); Neutrophils # 7.6 10*3/uL (1.4-7.4); Neutrophils % 80.9 % (38.7-73.9); Platelet Count 132 T/CUMM (130-400); Red Blood Count 3.12 MC/CUMM (3.8-5.5); Red Cell Distribution Width 13.2 % (9.3-17.3); White Blood Count 9.4 T/CUMM (4-12)
[2017-03-22 07:41] LABS: Albumin 2.7 G/DL (3.4-5.0); Bilirubin,Total 0.6 MG/DL (0.2-1.0); Calcium 8.1 MG/DL (8.5-10.1); Osmolality,Calculated 286.4 MOS/KG (273-304); Potassium 4.4 MMOL/L (3.5-5.1); Total Protein 5.8 G/DL (6.4-8.3)
[2017-03-22 07:48] LABS: Risk Ratio 2.14; VLDL CHOLESTEROL 12.4 MG/DL
--- NOTE | 2017-03-22 08:10 | Orthopedic Progress Note ---
Orthopedics - Subjective Interval history: Hematocrit 28. Still confused. Will start PT try to mobilize bed to chair and may weight-bear on the right. Exam - Constitutional Vitals: Period Temp Pulse Resp BP Sys/Suarez Pulse Ox Last 24 Hr 97.4 F-100.8 F 59-75 16-20 131-159/52-98 91-100 Results - Labs CBC & BMP: 03/22/17 06:46 03/22/17 06:46 Quality Measures - VTE Contraindication to Pharmacological VTE Prophylaxis: High Risk of Bleeding
[2017-03-22] MEDS: MEMANTINE 5 MG TABLET PO SCH ×2 (09:26→21:40)
[2017-03-22] MEDS: ASPIRIN CHEW 81 MG TABLET PO SCH (09:26)
[2017-03-22] MEDS: PRAVASTATIN 40 MG TABLET PO SCH ×2 (09:26→21:40)
[2017-03-22] MEDS: TAMSULOSIN 0.4 MG CAPSULE PO SCH (09:26)
[2017-03-22] MEDS: METOPROLOL SUCCINATE XL 100 MG TABLET PO SCH (09:27)
[2017-03-22] MEDS ORDERED: TUBERCULIN SKIN TEST 0.1 ML SYRINGE INTRADERM ONE (10:21)
--- NOTE | 2017-03-22 10:23 | Case Mgmt Physician Query Form ---
TB Signs and Symptoms Screening ([place]) INSTRUCTIONS: To be completed annually on residents/staff with a significant Tuberculin Skin Test (TST) upon admission/hire or a prior significant TST. To be completed on all staff at hire. Please respond to each listed symptom with an (X) in either the "YES" or "NO" box. Do you currently have any of the following symptoms: YES NO ( ) ( x) A cough If yes, is it: ( ) Productive ( ) Non- productive ( ) ( x) Hemoptysis (spitting up blood) ( ) ( x) Chest pains ( ) (x ) Weight Loss ( ) (x) Fever ( ) ( x) Night Sweats ( ) (x ) Weakness ( ) x ) Loss of Appetite ( ) ( x) Difficulty Breathing If you answered YES" to any of the above questions, how long have symptoms been present? Comments: If you have any questions, please contact me. Thank you, Mel Weiss RN, Office : [phone] Email : [email or web address]
--- NOTE | 2017-03-22 13:48 | Hospitalist Progress Note ---
Addendum entered and electronically signed by Patricia Orozco PA 03/22/17 13:49: Patient's note was closed out before subjective and objective material was dictated. Subjective: Patient is sleepy and not arousable to pain or voice. He is comfortable, breathing and oxygenating well. Objective: Pupils equal and reactive, chest clear, CV irregularly irregular, abdomen soft, extremities no edema Original Note: Assessment and Plan - Time spent with patient Time spent with patient: Less than 30 minutes (1) Closed right hip fracture Status: Acute Assessment and plan: 86-year-old white male with history of hypertension, CABG, cardiac dysrhythmia with pacemaker, dementia, and prostate cancer admitted by the hospitalist service on 03/21/2017 with right closed hip fracture. Patient was cleared by cardiology due to his extensive cardiac history. Patient underwent right compression hip screw for intertrochanteric fracture on 03/21/[address] De La Garza. Today patient is very sleepy and will not arouse to voice or minimal pain. He does look comfortable and he is breathing well and oxygenating well. Physical therapy attempted to work with him this morning but not could not get him to awaken enough for therapy. This is most likely a combination of his dementia, surgery, hospitalization, and pain medication. This should improve over a period of time. Patient is not in any distress at this time. His urine output is good but his urine is dark in the Moreira catheter and they did have some difficulty placing this. Will go ahead and DC this to make patient more comfortable. Social work is working on swing bed for his rehabilitation. Patient's states she is looking into a OR alf and is on waiting list due to patient getting very difficult to care for. Dr. Dickens will see and examine patient and further recommendations to follow. Current Visit: Yes (2) Dementia Status: Chronic Current Visit: Yes (3) Chronic kidney disease Status: Chronic Current Visit: Yes Qualifiers: Chronic kidney disease stage: stage 3 (moderate) Qualified Code(s): N18.3 - Chronic kidney disease, stage 3 (moderate) (4) Hypertension Status: Chronic Current Visit: Yes Exam - Constitutional Vitals: Period Temp Pulse Resp BP Sys/Suarez Pulse Ox Last 24 Hr 97.9 F-100.8 F 59-80 16-20 130-159/50-98 91-100 Results - Labs CBC & BMP: 09/19/17 06:46 03/22/17 06:46 Quality Measures - VTE Contraindication to Pharmacological VTE Prophylaxis: High Risk of Bleeding Specialty Discharge - Follow Up or Referrals Follow up with: Dmitry De La Garza Jr., MD [Physician] -
--- NOTE | 2017-03-22 13:52 | Cardiology Progress Note ---
Assessment and Plan - Time spent with patient Time spent with patient: Less than 30 minutes (1) Bradycardia Status: Acute Current Visit: Yes (2) Dementia Status: Chronic Current Visit: Yes (3) Renal insufficiency Status: Acute Current Visit: Yes (4) Hypertension Status: Chronic Current Visit: Yes (5) Dyslipidemia Status: Chronic Current Visit: Yes (6) CAD (coronary artery disease) Status: Chronic Current Visit: Yes Cardiology - PN: Subj Interval history: Mr. Wood's states that he has been sleepy all morning and barely arousable he awakened nicely with me and once his great-granddaughter came in the room he was certainly more bright. He is still somnolent but he answers questions appropriately he is at his baseline of dementia. His states the plans are for him to go to [facility] after 3 days of hospitalization if all goes well. No chest pain no shortness of breath. Exam (Progress Note) - Constitutional Vitals: Period Temp Pulse Resp BP Sys/Suarez Pulse Ox Last 24 Hr 97.9 F-100.8 F 59-80 16-20 130-159/50-98 91-100 General appearance: normal weight - Eye Eye exam: Present: EOMI Pupils: Present: ALEXANDER - Respiratory Respiratory exam: Present: clear to auscultation bilaterally (Suboptimal effort but clear) - Cardiovascular Cardiovascular exam: Present: regular rate and rhythm (He appears to be paced) - GI/Abdominal GI/Abdominal exam: Present: normal bowel sounds - Neurological Exam Neurological exam: Present: alert (He is not oriented he is slightly somnolent but at or near his baseline per his dementia) - Psychiatric Psychiatric exam: Present: other (Demented) - Skin Skin exam: Present: normal color, warm, dry Result/EKG - Labs CBC & BMP: 03/22/17 06:46 03/22/17 06:46 Labs: Laboratory Results - last 24 hr 03/22/17 03/22/17 03/22/17 06:46 06:46 06:46 WBC 9.4 RBC 3.12 L Hgb 9.5 L Hct 28.2 L MCV 90.4 MCH 30 MCHC 33.7 RDW 13.2 Plt Count 132 D MPV 10.5 Neut % (Auto) 80.9 H Lymph % (Auto) 7.1 L [place] % (Auto) 10.9 Eos % (Auto) 0.5 Baso % (Auto) 0.3 Neut # (Auto) 7.6 H Lymph # (Auto) 0.7 L [place] # (Auto) 1.0 H Eos # (Auto) 0.1 Baso # (Auto) 0.0 Immature Gran % 0.3 Nucleated RBC % 0.0 Immature Gran # 0.03 Nucleated RBCs # 0.00 Immature Plt Fraction 0.0 Sodium 140 Potassium 4.4 Chloride 107 Carbon Dioxide 26 Anion Gap 11.4 BUN 32 H Creatinine 2.40 H GFR Calculation 30 BUN/Creatinine Ratio 13.00 Glucose 113 H Calculated Osmolality 286.4 Calcium 8.1 L Magnesium Total Bilirubin 0.60 AST 47 H ALT 22 Alkaline Phosphatase 46 Total Protein 5.8 L Albumin 2.7 L Globulin 3.1 Albumin/Globulin Ratio 0.8 L Triglycerides 62 Cholesterol 94 LDL Cholesterol 40.0 VLDL Cholesterol 12.4 HDL Cholesterol 44 Heart Disease Risk Ratio 2.14 03/22/17 06:46 WBC RBC Hgb Hct MCV MCH MCHC RDW Plt Count MPV Neut % (Auto) Lymph % (Auto) [place] % (Auto) Eos % (Auto) Baso % (Auto) Neut # (Auto) Lymph # (Auto) [place] # (Auto) Eos # (Auto) Baso # (Auto) Immature Gran % Nucleated RBC % Immature Gran # Nucleated RBCs # Immature Plt Fraction Sodium Potassium Chloride Carbon Dioxide Anion Gap BUN Creatinine GFR Calculation BUN/Creatinine Ratio Glucose Calculated Osmolality Calcium Magnesium 2.4 Total Bilirubin AST ALT Alkaline Phosphatase Total Protein Albumin Globulin Albumin/Globulin Ratio Triglycerides Cholesterol LDL Cholesterol VLDL Cholesterol HDL Cholesterol Heart Disease Risk Ratio Quality Measures - VTE Contraindication to Pharmacological VTE Prophylaxis: High Risk of Bleeding Specialty Discharge - Follow Up or Referrals Follow up with: Dmitry De La Garza Jr., MD [Physician] -
[2017-03-23 04:03] LABS: Basophils % 0.3 % (0.0-0.8); Eosinophils # 0.1 10*3/uL (0.0-0.87); Eosinophils % 0.5 % (0.00-10.9); Hematocrit 26.1 VOL% (42.0-52.0); Hemoglobin 8.8 GM/DL (14.0-18.0); Immature Granulocytes % 0.5 %; Immature Granulocytes Absolute 0.05 #; Lymphocytes # 1.3 10*3/uL (1.4-4.0); Lymphocytes % 11.3 % (21.2-54.2); Mean Corpuscular HGB Conc 33.7 GM/DL (32-36); Mean Corpuscular Hemoglobin 30 PG (27-34); Mean Corpuscular Volume 89.7 FL (87-102); Mean Platelet Volume 10.3 FL (9.6-12.0); Monocytes # 1.2 10*3/uL (0.11-0.8); Monocytes % 11.2 % (1.7-12.7); Neutrophils # 8.4 10*3/uL (1.4-7.4); Neutrophils % 76.2 % (38.7-73.9); Platelet Count 132 T/CUMM (130-400); Red Blood Count 2.91 MC/CUMM (3.8-5.5); White Blood Count 11.1 T/CUMM (4-12)
[2017-03-23 04:30] LABS: Calcium 7.8 MG/DL (8.5-10.1); Osmolality,Calculated 290.1 MOS/KG (273-304); Potassium 4.3 MMOL/L (3.5-5.1)
[2017-03-23] MEDS: SODIUM CHLORIDE 0.9% 1,000 ML IV SCH ×3 (05:20→16:34)
[2017-03-23] MEDS: FONDAPARINUX 2.5 MG/0.5 ML SYRINGE SUBCUT SCH (05:21)
[2017-03-23] MEDS: METOPROLOL SUCCINATE XL 100 MG TABLET PO SCH (08:14)
[2017-03-23] MEDS: ASPIRIN CHEW 81 MG TABLET PO SCH (08:14)
[2017-03-23] MEDS: PRAVASTATIN 40 MG TABLET PO SCH ×2 (08:14→20:41)
[2017-03-23] MEDS: MEMANTINE 5 MG TABLET PO SCH ×2 (08:14→20:41)
[2017-03-23] MEDS: TAMSULOSIN 0.4 MG CAPSULE PO SCH (08:14)
--- NOTE | 2017-03-23 10:30 | Orthopedic Progress Note ---
Orthopedics - Subjective Interval history: Progress only to bedside with PT dressing is dry 5 soft H&H monitored falling slightly. We will continue with supportive care work on bed to chair mobility to rehab swing bed soon Exam - Constitutional Vitals: Period Temp Pulse Resp BP Sys/Suarez Pulse Ox Last 24 Hr 97.4 F-100.3 F 70-81 18-21 130-184/50-91 93-96 Results - Labs CBC & BMP: 03/23/17 03:00 03/23/17 03:00 Quality Measures - VTE Contraindication to Pharmacological VTE Prophylaxis: High Risk of Bleeding Specialty Discharge - Follow Up or Referrals Follow up with: Dmitry De La Garza Jr., MD [Physician] -
[2017-03-23] MEDS ORDERED: SODIUM CHLORIDE 0.9% 1,000 ML IV ONE (10:51)
[2017-03-23] MEDS: ARICEPT 23 MG PO SCH (11:06)
--- NOTE | 2017-03-23 12:59 | Hospitalist Progress Note ---
Assessment and Plan - Time spent with patient Time spent with patient: Less than 30 minutes (1) Closed right hip fracture Status: Acute Assessment and plan: 86-year-old white male with history of hypertension, CABG, cardiac dysrhythmia with pacemaker, dementia, and prostate cancer admitted by the hospitalist service on 03/21/2017 with right closed hip fracture. Patient was cleared by cardiology due to his extensive cardiac history. Patient underwent right compression hip screw for intertrochanteric fracture on 03/21/[address] De La Garza. Today patient is very sleepy and will not arouse to voice or minimal pain. He does look comfortable and he is breathing well and oxygenating well. Physical therapy attempted to work with him this morning but not could not get him to awaken enough for therapy. This is most likely a combination of his dementia, surgery, hospitalization, and pain medication. This should improve over a period of time. Patient is not in any distress at this time. His urine output is good but his urine is dark in the Moreira catheter and they did have some difficulty placing this. Will go ahead and DC this to make patient more comfortable. Social work is working on swing bed for his rehabilitation. Patient's states she is looking into a [place] detention and is on waiting list due to patient getting very difficult to care for. Dr. Dickens will see and examine patient and further recommendations to follow. 03/23/2017 patient is much more alert today and eating lunch with assistance from his . His blood pressures were up this morning but that is about the time he was working with physical therapy and in some pain. They have returned to normal. Patient's mucous membranes were dry and he has decreased p.o. intake so went ahead and bolused 1 L of normal saline. His H&H has a mild drop to 8.8/26 but this is expected with surgery. His creatinine is 2.3 which is most likely his baseline. Patient should be heading to swing bed either or Tuesday for rehab. Dr. Dickens will see and examine patient and further recommendations to follow. Current Visit: Yes (2) Dementia Status: Chronic Current Visit: Yes (3) Chronic kidney disease Status: Chronic Current Visit: Yes Qualifiers: Chronic kidney disease stage: stage 3 (moderate) Qualified Code(s): N18.3 - Chronic kidney disease, stage 3 (moderate) (4) Hypertension Status: Chronic Current Visit: Yes Hospitalist: Subjective Interval history: Patient is alert but demented today. He is getting ready to eat some lunch. His is at his bedside and assisting him. He is not complaining of pain at this time. Patient's states that he sat on the edge of the bed with physical therapy but he would not stand. Exam - Constitutional Vitals: Period Temp Pulse Resp BP Sys/Suarez Pulse Ox Last 24 Hr 97.4 F-100.3 F 66-81 16-21 126-184/51-91 93-99 Exam: 86-year-old white male, no acute distress, alert but not oriented Chest clear CV regular rate and rhythm Abdomen soft and nontender Extremities no edema Results - Labs CBC & BMP: 03/23/17 03:00 03/23/17 03:00 Lab Results: I have reviewed the past 24 hour labs Quality Measures - VTE Contraindication to Pharmacological VTE Prophylaxis: High Risk of Bleeding Specialty Discharge - Follow Up or Referrals Follow up with: Dmitry De La Garza Jr., MD [Physician] -
--- NOTE | 2017-03-23 14:02 | Cardiology Progress Note ---
<Tasneem Miguel E - Last Filed: 03/23/17 13:57> Assessment and Plan - Time spent with patient Time spent with patient: Greater than 30 minutes (1) Preoperative cardiovascular examination Status: Resolved Assessment and plan: Patient has done well with surgery. Current Visit: Yes (2) Dyslipidemia Status: Chronic Assessment and plan: Continue Pravastatin. LDL 40. At goal. Current Visit: Yes (3) Risk for falls Status: Chronic Assessment and plan: Fall prevention protocol in place Current Visit: Yes (4) CAD (coronary artery disease) Status: Chronic Assessment and plan: Known CAD. No complaints of angina per patient's . Continue at he is status post CABG 3. Continue aspirin, beta-sheryl, lipid-lowering agent. Current Visit: Yes (5) Closed right hip fracture Status: Acute Assessment and plan: Status post surgery to correct. Patient has been working with physical therapy. Hopefully, he will be ready for transfer to [facility] by the end of the week Current Visit: Yes (6) Dementia Status: Chronic Assessment and plan: Continue current medication regimen. Current Visit: Yes (7) Chronic kidney disease Status: Chronic Assessment and plan: Patient has a history of known CKD, unknown stage. Creatinine has been stable during the hospital stay. Avoiding JAMIE inhibitors for fear of worsening renal insufficiency. Current Visit: Yes Qualifiers: Chronic kidney disease stage: stage 3 (moderate) Qualified Code(s): N18.3 - Chronic kidney disease, stage 3 (moderate) (8) Hypertension Status: Chronic Assessment and plan: Adequately controlled on metoprolol. No need to adjust medications at this point Current Visit: Yes Cardiology - PN: Subj Interval history: BUCKRAM SEWER: DR. MONTELONGO SUMMARY: Mr. Wood, 86WM, with risk factors significant for: advanced age, known CAD (S/P CABG x 3), hypertension, dyslipidemia, sedentary lifestyle. S/P PPM, advanced dementia. Admitted March 21, 2017 after recent fall causing right hip fracture. Cardiology was consulted for preoperative risk evaluation. Patient underwent right hip surgery March 21, [address] De La Garza. He tolerated the procedure well and without complication. This morning, Mr. Wood is much more alert, pleasant. Ms. Wood states that his appetite has increased this morning and he is eating well. She believes that he is in very little pain. His vital signs are stable. Mildly more anemic overnight. Continue to follow his labs. Creatinine appears to be stable as well. I will further discuss with Dr. Montelongo and await additional recommendations. Exam (Progress Note) - Constitutional Vitals: Period Temp Pulse Resp BP Sys/Suarez Pulse Ox Last 24 Hr 97.4 F-100.3 F 66-81 16-21 126-184/51-91 93-99 Exam: General: [Appears well with no apparent distress.] [Pleasant and cooperative. ] [Appears comfortable.] HEENT: [PERRL, normocephalic, atraumatic. Mucous membranes moist. No jaundice noted. Conjunctiva moist and clear, sclerae anicteric] Neck: No obvious JVD/HJR, no thyromegaly or lymphadenopathy noted. No carotid bruit appreciated Cardiac: [Regular rate and rhythm.] [Soft II/ holosystolic murmur heard best at fifth intercostal space to the left. ] Lungs: [Clear to auscultation without accessory muscle use to assist the respiratory pattern.] Not requiring oxygen Abdomen: Soft, bowel sounds normoactive. Nontender and nondistended. No abdominal bruit or thrill noted. No masses noted. Musculoskeletal: No fluid collection. Decreased range of motion is noted. Extremities: No clubbing, cyanosis noted. [ No edema noted.] Upper extremity pulses 2+. Lower extremity pulses 2+. Capillary refill less than 3 seconds. Skin: No unusual lesions or rashes. No skin breakdown appreciated. Neuro: Awake, alert. Verbally communicates minimally. Moves all extremities well without hemiparesis or paralysis. Result/EKG - Labs CBC & BMP: 03/23/17 03:00 03/23/17 03:00 Lab Results: I have reviewed the past 24 hour labs Labs: Laboratory Results - last 24 hr 03/23/17 03/23/17 03:00 03:00 WBC 11.1 RBC 2.91 L Hgb 8.8 L Hct 26.1 L MCV 89.7 MCH 30 MCHC 33.7 RDW 13.0 Plt Count 132 MPV 10.3 Neut % (Auto) 76.2 H Lymph % (Auto) 11.3 L [place] % (Auto) 11.2 Eos % (Auto) 0.5 Baso % (Auto) 0.3 Neut # (Auto) 8.4 H Lymph # (Auto) 1.3 L [place] # (Auto) 1.2 H Eos # (Auto) 0.1 Baso # (Auto) 0.0 Immature Gran % 0.5 Nucleated RBC % 0.0 Immature Gran # 0.05 Nucleated RBCs # 0.00 Immature Plt Fraction 0.0 Sodium 142 Potassium 4.3 Chloride 110 H Carbon Dioxide 26 Anion Gap 10.3 BUN 33 H Creatinine 2.30 H GFR Calculation 32 BUN/Creatinine Ratio 14.00 Glucose 122 H Calculated Osmolality 290.1 Calcium 7.8 L Quality Measures - VTE Contraindication to Pharmacological VTE Prophylaxis: High Risk of Bleeding Specialty Discharge - Follow Up or Referrals Follow up with: Dmitry De La Garza Jr., MD [Physician] - <Christine Montelongo - Last Filed: 03/23/17 20:48> Assessment and Plan (1) Bradycardia Status: Acute Current Visit: Yes (2) Dementia Status: Chronic Current Visit: Yes (3) Renal insufficiency Status: Acute Current Visit: Yes (4) Hypertension Status: Chronic Current Visit: Yes (5) Dyslipidemia Status: Chronic Current Visit: Yes (6) CAD (coronary artery disease) Status: Chronic Current Visit: Yes Exam (Progress Note) - Constitutional Vitals: Period Temp Pulse Resp BP Sys/Suarez Pulse Ox Last 24 Hr 97.4 F-100.2 F 66-79 16-20 126-184/52-91 93-99 Result/EKG - Labs CBC & BMP: 03/23/17 03:00 03/23/17 03:00 Labs: Laboratory Results - last 24 hr 03/23/17 03/23/17 03:00 03:00 WBC 11.1 RBC 2.91 L Hgb 8.8 L Hct 26.1 L MCV 89.7 MCH 30 MCHC 33.7 RDW 13.0 Plt Count 132 MPV 10.3 Neut % (Auto) 76.2 H Lymph % (Auto) 11.3 L [place] % (Auto) 11.2 Eos % (Auto) 0.5 Baso % (Auto) 0.3 Neut # (Auto) 8.4 H Lymph # (Auto) 1.3 L [place] # (Auto) 1.2 H Eos # (Auto) 0.1 Baso # (Auto) 0.0 Immature Gran % 0.5 Nucleated RBC % 0.0 Immature Gran # 0.05 Nucleated RBCs # 0.00 Immature Plt Fraction 0.0 Sodium 142 Potassium 4.3 Chloride 110 H Carbon Dioxide 26 Anion Gap 10.3 BUN 33 H Creatinine 2.30 H GFR Calculation 32 BUN/Creatinine Ratio 14.00 Glucose 122 H Calculated Osmolality 290.1 Calcium 7.8 L
[2017-03-23] MEDS: MORPHINE 2 MG/1 ML SYRINGE IV PRN (20:45)
[2017-03-24] MEDS: MORPHINE 2 MG/1 ML SYRINGE IV PRN ×2 (00:46→05:02)
[2017-03-24] MEDS: SODIUM CHLORIDE 0.9% 1,000 ML IV SCH ×4 (03:10→23:16)
[2017-03-24] MEDS: FONDAPARINUX 2.5 MG/0.5 ML SYRINGE SUBCUT SCH (05:04)
[2017-03-24 06:41] LABS: Calcium 7.9 MG/DL (8.5-10.1); Magnesium 2.4 MG/DL (1.8-2.4); Potassium 4.6 MMOL/L (3.5-5.1)
[2017-03-24 07:53] LABS: Basophils % 0.3 % (0.0-0.8); Eosinophils # 0.1 10*3/uL (0.0-0.87); Eosinophils % 0.8 % (0.00-10.9); Hematocrit 26.9 VOL% (42.0-52.0); Hemoglobin 9.3 GM/DL (14.0-18.0); Immature Granulocytes % 0.5 %; Immature Granulocytes Absolute 0.05 #; Lymphocytes # 0.8 10*3/uL (1.4-4.0); Lymphocytes % 7.1 % (21.2-54.2); Mean Corpuscular HGB Conc 34.6 GM/DL (32-36); Mean Corpuscular Hemoglobin 31 PG (27-34); Mean Corpuscular Volume 89.4 FL (87-102); Mean Platelet Volume 10.5 FL (9.6-12.0); Monocytes % 8.8 % (1.7-12.7); Neutrophils # 9.2 10*3/uL (1.4-7.4); Neutrophils % 82.5 % (38.7-73.9); Platelet Count 137 T/CUMM (130-400); Red Blood Count 3.01 MC/CUMM (3.8-5.5); Red Cell Distribution Width 13.1 % (9.3-17.3); White Blood Count 11.1 T/CUMM (4-12)
[2017-03-24] MEDS: ASPIRIN CHEW 81 MG TABLET PO SCH (08:29)
[2017-03-24] MEDS: amLODIPine 5 MG TABLET PO SCH (08:29)
[2017-03-24] MEDS: TAMSULOSIN 0.4 MG CAPSULE PO SCH (08:29)
[2017-03-24] MEDS: METOPROLOL SUCCINATE XL 100 MG TABLET PO SCH (08:29)
[2017-03-24] MEDS: MEMANTINE 5 MG TABLET PO SCH ×2 (08:29→22:04)
[2017-03-24] MEDS ORDERED: MORPHINE 2 MG/1 ML SYRINGE IV PRN (08:31)
--- NOTE | 2017-03-24 08:32 | Orthopedic Progress Note ---
Orthopedics - Subjective Interval history: Hematocrit up to 27 PT working on bed to chair mobility appears comfortable dressing is dry. Discussed. Likely to rehab swing bed soon discharge instructions will be given. Exam - Constitutional Vitals: Period Temp Pulse Resp BP Sys/Suarez Pulse Ox Last 24 Hr 98.7 F-100.2 F 66-98 16- 126-181/50-91 90-99 Results - Labs CBC & BMP: 03/24/17 07:41 03/24/17 04:59 Quality Measures - VTE Contraindication to Pharmacological VTE Prophylaxis: High Risk of Bleeding Specialty Discharge - Follow Up or Referrals Follow up with: Dmitry De La Garza Jr., MD [Physician] -
[2017-03-24] MEDS ORDERED: IBUPROFEN 400 MG TABLET PO PRN (10:30)
--- NOTE | 2017-03-24 10:34 | Cardiology Progress Note ---
Assessment and Plan - Time spent with patient Time spent with patient: Greater than 30 minutes (1) Preoperative cardiovascular examination Status: Resolved Assessment and plan: Patient has done well with surgery from a cardiology standpoint. Continue aspirin, beta-sheryl Current Visit: Yes (2) Dyslipidemia Status: Chronic Assessment and plan: Continue Pravastatin. LDL 40. At goal. Current Visit: Yes (3) Risk for falls Status: Chronic Assessment and plan: Fall prevention protocol in place Current Visit: Yes (4) CAD (coronary artery disease) Status: Chronic Assessment and plan: Known CAD. No complaints of angina during hospital stay. History of CABG 3. Continue aspirin, beta-sheryl, lipid-lowering agent. Current Visit: Yes (5) Closed right hip fracture Status: Acute Assessment and plan: Status post surgery to correct. Patient has been working with physical therapy with minimal improvement. Hopefully, he will be ready for transfer to [facility] by the end of the week. Certainly, he can benefit from aggressive physical therapy and strengthening activities Current Visit: Yes (6) Dementia Status: Chronic Assessment and plan: Continue current medication regimen. Current Visit: Yes (7) Chronic kidney disease Status: Chronic Assessment and plan: Patient has a history of known CKD, unknown stage. Creatinine has been stable during the hospital stay, improved overnight. Avoiding JAMIE inhibitors for fear of worsening renal insufficiency. Current Visit: Yes Qualifiers: Chronic kidney disease stage: stage 3 (moderate) Qualified Code(s): N18.3 - Chronic kidney disease, stage 3 (moderate) (8) Hypertension Status: Chronic Assessment and plan: Norvasc added today for better blood pressure controlled. Current Visit: Yes Cardiology - PN: Subj Interval history: REPEATER CHIEF: DR. MONTELONGO SUMMARY: Mr. Wood, 86WM, with risk factors significant for: advanced age, known CAD (S/P CABG x 3), hypertension, dyslipidemia, sedentary lifestyle. S/P PPM, advanced dementia. Admitted March 21, 2017 after recent fall causing right hip fracture. Cardiology was consulted for preoperative risk evaluation. Patient underwent right hip surgery March 21, [address] De La Garza. He tolerated the procedure well and without complication. This morning, Mr. Wood has been placed in the bedside chair by physical therapy. He did not make much progress with physical therapy today, very weak from the right hip. Ms. Wood believes that he is not in a significant amount of pain and recently his pain medication was discontinued. He is much less alert this morning, sleeping in the bedside chair. Anemia and creatinine improved overnight. We will continue to follow his labs daily. Continue Aspirin. Blood pressure is suboptimally controlled and Norvasc was initiated this morning. Patient should be eligible for transfer to [facility] soon. From a cardiology standpoint, stable for discharge. I will further discuss with Dr. Montelongo and await additional recommendations. Exam (Progress Note) - Constitutional Vitals: Period Temp Pulse Resp BP Sys/Suarez Pulse Ox Last 24 Hr 98.7 F-100.2 F 66-98 16-21 126-181/50-91 90-99 Exam: General: [Appears well with no apparent distress. Sleeping in the bedside chair.] [Appears comfortable HEENT: [Normocephalic, atraumatic. Mucous membranes moist. No jaundice noted. Conjunctiva moist and clear, sclerae anicteric] Neck: No obvious JVD/HJR, no thyromegaly or lymphadenopathy noted. No carotid bruit appreciated Cardiac: [Regular rate and rhythm.] [Soft III/ murmur heard best at second intercostal space to the left. ] Lungs: [Clear to auscultation without accessory muscle use to assist the respiratory pattern.] Not requiring oxygen Abdomen: Soft, bowel sounds normoactive. Nontender and nondistended. No abdominal bruit or thrill noted. No masses noted. Musculoskeletal: No fluid collection. Decreased range of motion is noted. Extremities: No clubbing, cyanosis noted. [ No edema noted.] Upper extremity pulses 2+. Lower extremity pulses 2+. Right hip dressing dry and intact. Capillary refill less than 3 seconds. Skin: No unusual lesions or rashes. No skin breakdown appreciated. Neuro: Awake, alert. Verbally communicates minimally. Moves all extremities well without hemiparesis or paralysis. Result/EKG - Labs CBC & BMP: 03/24/17 07:41 03/24/17 04:59 Lab Results: I have reviewed the past 24 hour labs Labs: Laboratory Results - last 24 hr 03/24/17 03/24/17 04:59 07:41 WBC 11.1 RBC 3.01 L Hgb 9.3 L Hct 26.9 L MCV 89.4 MCH 31 MCHC 34.6 RDW 13.1 Plt Count 137 MPV 10.5 Neut % (Auto) 82.5 H Lymph % (Auto) 7.1 L [place] % (Auto) 8.8 Eos % (Auto) 0.8 Baso % (Auto) 0.3 Neut # (Auto) 9.2 H Lymph # (Auto) 0.8 L [place] # (Auto) 1.0 H Eos # (Auto) 0.1 Baso # (Auto) 0.0 Immature Gran % 0.5 Nucleated RBC % 0.0 Immature Gran # 0.05 Nucleated RBCs # 0.00 Immature Plt Fraction 0.0 Sodium 143 Potassium 4.6 Chloride 112 H Carbon Dioxide 22 Anion Gap 13.6 BUN 32 H Creatinine 1.90 H GFR Calculation 40 BUN/Creatinine Ratio 16.00 Glucose 101 Calculated Osmolality 291.0 Calcium 7.9 L Magnesium 2.4 Quality Measures - VTE Contraindication to Pharmacological VTE Prophylaxis: High Risk of Bleeding Specialty Discharge - Follow Up or Referrals Follow up with: Dmitry De La Garza Jr., MD [Physician] -
--- NOTE | 2017-03-24 10:38 | Hospitalist Progress Note ---
Assessment and Plan - Time spent with patient Time spent with patient: Less than 30 minutes (1) Closed right hip fracture Status: Acute Assessment and plan: 86-year-old white male with history of hypertension, CABG, cardiac dysrhythmia with pacemaker, dementia, and prostate cancer admitted by the hospitalist service on 03/21/2017 with right closed hip fracture. Patient was cleared by cardiology due to his extensive cardiac history. Patient underwent right compression hip screw for intertrochanteric fracture on 03/21/[address] De La Garza. Today patient is very sleepy and will not arouse to voice or minimal pain. He does look comfortable and he is breathing well and oxygenating well. Physical therapy attempted to work with him this morning but not could not get him to awaken enough for therapy. This is most likely a combination of his dementia, surgery, hospitalization, and pain medication. This should improve over a period of time. Patient is not in any distress at this time. His urine output is good but his urine is dark in the Moreira catheter and they did have some difficulty placing this. Will go ahead and DC this to make patient more comfortable. Social work is working on swing bed for his rehabilitation. Patient's states she is looking into a [place] intermediate and is on waiting list due to patient getting very difficult to care for. Dr. Dickens will see and examine patient and further recommendations to follow. 03/23/2017 patient is much more alert today and eating lunch with assistance from his . His blood pressures were up this morning but that is about the time he was working with physical therapy and in some pain. They have returned to normal. Patient's mucous membranes were dry and he has decreased p.o. intake so went ahead and bolused 1 L of normal saline. His H&H has a mild drop to 8.8/26 but this is expected with surgery. His creatinine is 2.3 which is most likely his baseline. Patient should be heading to swing bed either or Tuesday for rehab. Dr. Dickens will see and examine patient and further recommendations to follow. 03/24/2017 patient is requiring max assistance to the chair. He is afebrile and his vital signs are stable on his current medication regimen. Patient did have some acute on chronic renal insufficiency that has improved to 1.9 overnight with a liter of fluid and increase in his hourly IV fluids. His daughter is concerned about his somnolence from his pain medications. These have been adjusted. We will see how he does today on these medications and hopefully he can go to swing bed tomorrow. Dr. Diane will see and examine patient and further recommendations to follow. Current Visit: Yes (2) Dementia Status: Chronic Current Visit: Yes (3) Chronic kidney disease Status: Chronic Current Visit: Yes Qualifiers: Chronic kidney disease stage: stage 3 (moderate) Qualified Code(s): N18.3 - Chronic kidney disease, stage 3 (moderate) (4) Hypertension Status: Chronic Current Visit: Yes Hospitalist: Subjective Interval history: Patient required Lori lift to be put in the chair this morning. He is still continuing to be sleepy but he is arousable and will answer simple questions. He is not complaining of pain right now. His daughter is in the room and is concerned about his somnolence and possible overmedication. Dr. Liriano did see the patient earlier this morning and decrease his pain medication options. Exam - Constitutional Vitals: Period Temp Pulse Resp BP Sys/Suarez Pulse Ox Last 24 Hr 98.7 F-100.2 F 66-98 16-21 126-181/50-91 90-99 Exam: 86-year-old white male, no acute distress, sleepy but arousable Chest clear CV regular rate and rhythm Abdomen soft and nontender Extremities no edema Results - Labs CBC & BMP: 03/24/17 07:41 03/24/17 04:59 Lab Results: I have reviewed the past 24 hour labs Quality Measures - VTE Contraindication to Pharmacological VTE Prophylaxis: High Risk of Bleeding Specialty Discharge - Follow Up or Referrals Follow up with: Dmitry De La Garza Jr., MD [Physician] -
[2017-03-24] MEDS: ARICEPT 23 MG PO SCH (20:26)
[2017-03-24] MEDS: PRAVASTATIN 40 MG TABLET PO SCH (22:04)
[2017-03-25] MEDS: SODIUM CHLORIDE 0.9% 1,000 ML IV SCH (01:04)
[2017-03-25] MEDS: FONDAPARINUX 2.5 MG/0.5 ML SYRINGE SUBCUT SCH (06:55)
[2017-03-25 08:09] LABS: Basophils % 0.4 % (0.0-0.8); Eosinophils # 0.2 10*3/uL (0.0-0.87); Hematocrit 26.9 VOL% (42.0-52.0); Immature Granulocytes % 0.6 %; Immature Granulocytes Absolute 0.06 #; Lymphocytes # 0.8 10*3/uL (1.4-4.0); Lymphocytes % 7.4 % (21.2-54.2); Mean Corpuscular HGB Conc 33.5 GM/DL (32-36); Mean Corpuscular Hemoglobin 30 PG (27-34); Mean Corpuscular Volume 89.7 FL (87-102); Mean Platelet Volume 10.5 FL (9.6-12.0); Monocytes # 0.9 10*3/uL (0.11-0.8); Monocytes % 9.1 % (1.7-12.7); Neutrophils # 8.3 10*3/uL (1.4-7.4); Neutrophils % 80.5 % (38.7-73.9); Platelet Count 174 T/CUMM (130-400); Red Cell Distribution Width 13.1 % (9.3-17.3); White Blood Count 10.3 T/CUMM (4-12)
[2017-03-25 08:40] LABS: Calcium 7.6 MG/DL (8.5-10.1); Magnesium 2.3 MG/DL (1.8-2.4); Osmolality,Calculated 292.8 MOS/KG (273-304); Potassium 4.4 MMOL/L (3.5-5.1)
--- NOTE | 2017-03-25 08:42 | Cardiology Progress Note ---
Assessment and Plan (1) Bradycardia Status: Acute Current Visit: Yes (2) Dementia Status: Chronic Current Visit: Yes Qualifiers: Dementia type: Alzheimer's disease (3) Renal insufficiency Status: Acute Current Visit: Yes (4) Hypertension Status: Chronic Current Visit: Yes (5) Dyslipidemia Status: Chronic Current Visit: Yes (6) CAD (coronary artery disease) Status: Chronic Current Visit: Yes Cardiology - PN: Subj Interval history: The patient is still very somnolent he is arousable and more conversant today overall he looks quite good. I discussed with his daughter and at the bedside and discussed with him he is excited about going to [employer] he wants to play cards Exam (Progress Note) - Constitutional Vitals: Period Temp Pulse Resp BP Sys/Suarez Pulse Ox Last 24 Hr 98.2 F-99.4 F 80-90 17-20 141-163/68-96 93-98 General appearance: normal weight - Respiratory Respiratory exam: Present: clear to auscultation bilaterally - Cardiovascular Cardiovascular exam: Present: regular rate and rhythm (Murmur of aortic stenosis ) Result/EKG - Labs CBC & BMP: 03/25/17 07:28 03/25/17 07:28 Labs: Laboratory Results - last 24 hr 03/25/17 03/25/17 03/25/17 07:28 07:28 07:28 WBC 10.3 RBC 3.00 L Hgb 9.0 L Hct 26.9 L MCV 89.7 MCH 30 MCHC 33.5 RDW 13.1 Plt Count 174 D MPV 10.5 Neut % (Auto) 80.5 H Lymph % (Auto) 7.4 L [place] % (Auto) 9.1 Eos % (Auto) 2.0 Baso % (Auto) 0.4 Neut # (Auto) 8.3 H Lymph # (Auto) 0.8 L [place] # (Auto) 0.9 H Eos # (Auto) 0.2 Baso # (Auto) 0.0 Immature Gran % 0.6 Nucleated RBC % 0.0 Immature Gran # 0.06 Nucleated RBCs # 0.00 Immature Plt Fraction 0.0 Sodium 143 144 Potassium 4.4 4.4 Chloride 113 H 113 H Carbon Dioxide 24 26 Anion Gap 10.4 9.4 BUN 33 H 33 H Creatinine 1.60 H 1.80 H GFR Calculation 49 43 BUN/Creatinine Ratio 20.00 18.00 Glucose 106 104 Calculated Osmolality 291.0 292.8 Calcium 7.6 L 7.6 L Magnesium 2.3 Quality Measures - VTE Contraindication to Pharmacological VTE Prophylaxis: High Risk of Bleeding Specialty Discharge - Follow Up or Referrals Follow up with: Dmitry De La Garza Jr., MD [Physician] -
--- NOTE | 2017-03-25 09:14 | Discharge Summary ---
<Patricia Orozco - Last Filed: 03/25/17 09:10> Hospital Course - Hospital Course Hospital Course: 86-year-old white male with history of hypertension, CABG, cardiac dysrhythmia with pacemaker, dementia, and prostate cancer admitted by the hospitalist service on 03/21/2017 with right closed hip fracture. Patient is being followed by cardiology and was cleared for surgery due to his extensive cardiac history. Patient underwent right compression hip screw for intertrochanteric fracture on 03/21/[address] Frederic Brar. Patient had some issues with somnolence due to the combination of his dementia, anesthesia, and pain medication. Patient's medications have been adjusted and he is awake and eager to go to [facility] this morning. He will be discharged to [facility] on Tylenol alone due to his sensitivity to pain medication. Patient also had some acute kidney injury due to dehydration and this is now down to 1.8 today which is most likely his baseline. Patient will follow up with Dr. Frederic Rosenbaum in clinic and keep his routine appointment with Dr. Hsieh. Complete discharge instructions were discussed with patient's daughter at the bedside. Care coordination, chart review, and completed discharge paperwork took approximately 37 minutes. - Time spent with patient Time with patient DS: Greater than 30 minutes Diagnosis - Discharge Diagnosis (1) Closed right hip fracture Status: Resolved (2) Dementia Status: Chronic (3) Chronic kidney disease Status: Chronic (4) Hypertension Status: Chronic Specialty Discharge - Follow Up or Referrals Follow up with: Dmitry De La Garza Jr., MD [Physician] - Christine Hsieh DO [Physician] - (Keep routine appointment) Discharge Plan - Discharge Data Disposition: Swing Bed, [facility] Based, [facility] Condition at Discharge: Stable Discharge Diet: advance to your usual diet Activity: as per physical therapy Hygiene: may shower Contact your physician if you experience:: fever over 101, pain uncontrolled by pain medications - Discharge Medications New Acetaminophen Tab [Tylenol Tab] 650 mg PO Q4H PRN tablet PRN Reason: Fever, Headache, Mild Pain amLODIPine [Norvasc] 5 mg PO DAILY #30 tablet Continue Tamsulosin HCl 0.4 mg PO DAILY Metoprolol Succinate Xl [Toprol Xl] 100 mg PO DAILY Pravastatin [Pravachol] 80 mg PO DAILY Aspirin 81 mg PO DAILY Memantine HCl [Namenda] 10 mg PO BID Donepezil HCl [Aricept] 23 mg PO BEDTIME - Follow Up or Referral Follow Up: Dmitry De La Garza Jr., MD [Physician] - Christine Hsieh DO [Physician] - (Keep routine appointment) - Forms/Instructions Instructions: Hip Fracture, Medical Manager (GEN) Exam - Constitutional Vitals: Period Temp Pulse Resp BP Sys/Suarez Pulse Ox Last 24 Hr 98.2 F-99.4 F 80-90 17-20 141-163/68-96 93-98 Exam: 86-year-old white male, no acute distress, pleasantly demented Chest clear CV regular rate and rhythm Abdomen soft and nontender Extremities no edema Discharge Results Labs on day of discharge: Labs from last 24 hours 03/25/17 03/25/17 03/25/17 07:28 07:28 07:28 WBC 10.3 RBC 3.00 L Hgb 9.0 L Hct 26.9 L MCV 89.7 MCH 30 MCHC 33.5 RDW 13.1 Plt Count 174 D MPV 10.5 Neut % (Auto) 80.5 H Lymph % (Auto) 7.4 L [place] % (Auto) 9.1 Eos % (Auto) 2.0 Baso % (Auto) 0.4 Neut # (Auto) 8.3 H Lymph # (Auto) 0.8 L [place] # (Auto) 0.9 H Eos # (Auto) 0.2 Baso # (Auto) 0.0 Immature Gran % 0.6 Nucleated RBC % 0.0 Immature Gran # 0.06 Nucleated RBCs # 0.00 Immature Plt Fraction 0.0 Sodium 144 143 Potassium 4.4 4.4 Chloride 113 H 113 H Carbon Dioxide 26 24 Anion Gap 9.4 10.4 BUN 33 H 33 H Creatinine 1.80 H 1.60 H GFR Calculation 43 49 BUN/Creatinine Ratio 18.00 20.00 Glucose 104 106 Calculated Osmolality 292.8 291.0 Calcium 7.6 L 7.6 L Magnesium 2.3 DS: Provider Date of admission: 03/21/17 05:07 Primary care physician: Argentina Garcia MD Attending physician on admission: Kong Webster MD Consults: 03/21/17 05:08 Consult to Physician [CONS] Routine Comment: Right hip fracture Consulting Provider: Dmitry De La Garza Jr. Consulting Provider Notified: Yes When should Consulting Provider be notified: Now Person Notified: obey called Date Notified: 03/21/17 Time Notified: 08:10 Consult to Physician [CONS] Routine Comment: Surgery clearance Consulting Provider: Cardiology - [facility] Consulting Provider Notified: Yes When should Consulting Provider be notified: Now Person Notified: katie cavanaugh Date Notified: 03/21/17 Time Notified: 08:09 03/21/17 09:36 Consult to Case Mgmt/Social Srvs [CONS] Routine Reason for Case Mgmt/Social Srvs: Discharge Planning Consult Comment: Eval for options at discharge. 03/21/17 13:18 Consult to Physical Therapy [CONS] Routine Reason for Physical Therapy: Evaluate and Treat 03/21/17 13:20 Consult to Occupational Therapy [CONS] Routine Reason for Occupational Therapy: Evaluate and Treat Consult Comment: Advance weightbearing as tolerated right 03/21/17 14:25 Consult to Case Mgmt/Social Srvs [CONS] Routine Reason for Case Mgmt/Social Srvs: Swingbed/SNF/Skilled Nursing Home Health Rehab Consult Comment: Referral for Swing Bed after discharge Discharging clinician: ISABEL Mi Expected date of discharge: 03/25/17 <Shanice Diane - Last Filed: 03/25/17 10:06> Hospital Course - Time spent with patient Time with patient DS: Greater than 30 minutes (time spent greater than 35mins) Diagnosis - Discharge Diagnosis (1) Closed right hip fracture Status: Resolved (2) Dementia Status: Chronic (3) Chronic kidney disease Status: Chronic (4) Hypertension Status: Chronic Exam - Constitutional General appearance: no acute distress - Head Head exam: Present: normal inspection - Respiratory Respiratory exam: Present: clear to auscultation bilaterally - Cardiovascular Cardiovascular exam: Present: regular rate and rhythm - GI/Abdominal GI/Abdominal exam: Present: normal bowel sounds
--- NOTE | 2017-03-25 09:33 | Orthopedic Progress Note ---
Orthopedics - Subjective Interval history: Little change mobilized up to chair yesterday with difficulty to swing bed today follow-up as an instructed/ordered Exam - Constitutional Vitals: Period Temp Pulse Resp BP Sys/Suarez Pulse Ox Last 24 Hr 98.2 F-99.4 F 80-90 17-20 141-163/68-96 93-98 Results - Labs CBC & BMP: 03/25/17 07:28 03/25/17 07:28 Quality Measures - VTE Contraindication to Pharmacological VTE Prophylaxis: High Risk of Bleeding Specialty Discharge - Follow Up or Referrals Follow up with: Dmitry De La Garza Jr., MD [Physician] - Christine Hsieh DO [Physician] - (Keep routine appointment)
[2017-03-25] MEDS: TAMSULOSIN 0.4 MG CAPSULE PO SCH (09:41)
[2017-03-25] MEDS: MEMANTINE 5 MG TABLET PO SCH (09:41)
[2017-03-25] MEDS: ASPIRIN CHEW 81 MG TABLET PO SCH (09:41)
[2017-03-25] MEDS: amLODIPine 5 MG TABLET PO SCH (09:42)
[2017-03-25] MEDS: METOPROLOL SUCCINATE XL 100 MG TABLET PO SCH (09:42)
[2017-03-25 10:57] VITALS: BP 144/55
== END 2017-03-25 15:10 | DRG 481 ==
LOC: EDBD → EDUNIT# → N.ED 01:43 → N.EDINP 05:07 → SUATTDRO 05:07 → N.3E 06:08
PROVIDERS: ADMIT Hospitalist; ATTEND Internal Medicine